=== PATIENT | male | born 1960 | race African-American/Black ===

== ENCOUNTER 2020-11-30 17:37 | Inpatient (IN) | payer OTHER ==
[~2020-11-30] VITALS: Ht 170.1 cm; Wt 103.0 kg
[2020-11-30 17:55] VITALS: BP 152/84
[2020-11-30] MEDS ORDERED: NORVASC10 MG PO (18:27)
[2020-11-30] MEDS ORDERED: MOBIC15 MG PO (18:27)
[2020-11-30] MEDS ORDERED: COZAAR50 M1 PO (18:27)
[2020-11-30] MEDS ORDERED: ASPIRIN CHEWABL81 MG PO (18:28)
[2020-11-30 18:41] LABS: BASO % 0.5 % (0.0-1.0); EOS # 0.2 10*3/uL (0.0-0.4); EOS % 1.7 % (1.0-4.0); HEMATOCRIT 43.7 % (42.0-52.0); LYMPH # 2.6 10*3/uL (1.3-4.4); LYMPH % 29.3 % (27.0-41.0); MEAN CELL VOLUME 84.2 fl (80.0-94.0); MEAN CORPUSCULAR HGB 27.4 pg (27.0-31.0); MEAN CORPUSCULAR HGB CONC 32.5 g/dl (33.0-37.0); MEAN PLATELET VOLUME 9.5 fl (9.6-12.3); MONO # 0.5 10*3/uL (0.1-1.0); MONO % 6.1 % (3.0-9.0); NEUT # 5.4 10*3/uL (2.3-7.9); NEUT % 61.7 % (47.0-73.0); PLATELET COUNT AUTOMATED 313 10*3/uL (130-400); RED BLOOD COUNT 5.19 10*6/uL (4.50-5.90); RED CELL DISTRI WIDTH 13.1 % (0-14.5); WHITE BLOOD COUNT 8.7 10*3/uL (4.8-10.8)
[2020-11-30 18:50] LABS: INTERNATIONAL NORM RATIO 0.9 (2.0-3.5)
[2020-11-30 18:55] LABS: ALBUMIN 3.3 gm/dl (3.1-4.5); ALKALINE PHOSPHATASE 77 U/L (45-117); BUN 16 mg/dl (7-24); CHLORIDE 107 mmol/L (98-107); CREATININE 0.82 mg/dL (0.70-1.30); LIPASE 124 U/L (73-393); POTASSIUM 3.8 mmol/L (3.5-5.1); SGOT/AST 8 IU/L (3-35); SGPT/ALT 31 U/L (12-78); SODIUM 137 mmol/L (136-145); TOTAL PROTEIN 6.9 gm/dL (6.4-8.2)
[2020-11-30 20:00] VITALS: BP 100/48; BP 143/77
[2020-11-30] MEDS ORDERED: 24 HOUR ALLER15.8 ML NAS (20:35)
[2020-11-30] MEDS ORDERED: MELATONIN5 M1 PO (20:36)
[2020-12-01] VITALS: BP 120/72
[2020-12-01] MEDS ORDERED: INSULIN LI100 UNIT/2 SQ (05:04)
[2020-12-01] MEDS ORDERED: LANTUS SOL100 UNIT/1 SC (05:04)
[2020-12-01] MEDS ORDERED: PERCOCET 7.5-31 EACH PO (05:06)
[2020-12-01 06:13] LABS: BILIRUBIN Negative (Negative); BLOOD Negative (Negative); CLARITY Clear (Clear); COLOR Yellow (Yellow); GLUCOSE 2+ (Negative); KETONE Negative (Negative); LEUKO ESTERASE Negative (Negative); NITRITE Negative (Negative); UROBILINOGEN 0.2 E.U./dl (0.0-1.0)
[2020-12-01 06:21] LABS: URINE AMPHETAMINES < 1000 (1000ng/ml); URINE BARBITURATES < 200 (200ng/ml); URINE BENZODIAZEPINES < 200 (200ng/ml); URINE CANNABINOIDS (THC) < 50 (50ng/ml); URINE COCAINE < 300 (300ng/ml); URINE METHADONE < 300 (300ng/ml); URINE OPIATES < 300 (300ng/ml)
[2020-12-01 06:26] LABS: URINE PHENCYCLIDINE < 25 (25ng/ml)
[2020-12-01 06:29] LABS: WBC 0-2 wbc/hpf (0-5)
[2020-12-01 08:00] VITALS: BP 124/79
[2020-12-01 12:00] VITALS: BP 123/79
[2020-12-01 16:00] VITALS: BP 117/72
[2020-12-01 20:00] VITALS: BP 136/83
[2020-12-02] VITALS: BP 136/76
[2020-12-02 08:00] VITALS: BP 139/71
[2020-12-02 12:00] VITALS: BP 146/84
[2020-12-02 16:00] VITALS: BP 125/75
[2020-12-02 20:00] VITALS: BP 137/76
[2020-12-03 08:00] VITALS: BP 135/74
[2020-12-03] MEDS ORDERED: Humalog SQ (08:52)
[2020-12-03] MEDS ORDERED: COZAAR50 M1 PO (08:53)
[2020-12-03] MEDS ORDERED: VITAMIN B-1100 M1 PO (08:53)
[2020-12-03] MEDS ORDERED: NORVASC10 MG PO (08:53)
[2020-12-03] MEDS ORDERED: 24 HOUR ALLER15.8 ML NAS (08:53)
[2020-12-03] MEDS ORDERED: ASPIRIN CHEWABL81 MG PO (08:53)
[2020-12-03] MEDS ORDERED: NATURE'S BLEND F1 MG PO (08:53)
[2020-12-03] MEDS ORDERED: MUCINEX ER600 MG PO (08:54)
== END 2020-12-03 10:30 | DRG 773 ==
LOC: 4E 17:37 → EDBD 17:37 → 4E 18:27
PROVIDERS: Social Worker Clinical; ADMIT Internal Medicine; ATTEND Internal Medicine
DX: F11.23 Opioid dependence with withdrawal (principal); F10.239 Alcohol dependence with withdrawal, unspecified; Y90.2 Blood alcohol level of 40-59 mg/100 ml; J44.9 Chronic obstructive pulmonary disease, unspecified; I10 Essential (primary) hypertension; F17.210 Nicotine dependence, cigarettes, uncomplicated; R45.0 Nervousness; E87.8 Other disorders of electrolyte and fluid balance, not elsewhere classified; R73.9 Hyperglycemia, unspecified; Z79.82 Long term (current) use of aspirin; Z79.4 Long term (current) use of insulin; Z79.1 Long term (current) use of non-steroidal anti-inflammatories (NSAID); Z79.899 Other long term (current) drug therapy; Z88.6 Allergy status to analgesic agent; Z88.5 Allergy status to narcotic agent; Z82.49 Family history of ischemic heart disease and other diseases of the circulatory system; Z71.6 Tobacco abuse counseling